=== PATIENT | female | born 2000 | race Caucasian/White ===

== ENCOUNTER 2023-07-31 12:43 | Inpatient (IN) | payer BC, MEDICAID, SELFPAY ==
[2023-07-31] VITALS (35 sets, daily range): BP systolic 124–162; BP diastolic 62–86; PULSE 73–117; TEMP 36.6–36.9
[2023-07-31 13:23] LABS: Amnisure POSITIVE (NEGATIVE)
[2023-07-31 13:24] LABS: Bilirubin Urine NEGATIVE (NEGATIVE); Blood Urine NEGATIVE (NEGATIVE); Clarity Urine CLEAR (CLEAR); Color Urine LT. YELLOW (YELLOW); Glucose Urine UA NEGATIVE (NEGATIVE); Ketones Urine NEGATIVE (NEGATIVE); Leukocyte Esterase Urine NEGATIVE (NEGATIVE); Nitrite Urine NEGATIVE (NEGATIVE); Protein Urine NEGATIVE (NEG/TRACE); Specific Gravity Urine 1.015 (1.005-1.025); Urine Microscopic Indicated NO; Urobilinogen Urine 0.2 EU/dL (0.2-1.0)
[2023-07-31] MEDS: AMPICILLIN SODIUM 2,000 MG in 0.9 % SODIUM CHLORIDE 100 ML 200 MG IV (14:01)
[2023-07-31] MEDS: 0.9 % SODIUM CHLORIDE 1,000 ML 125 ML IV ×2 (14:01→22:14)
[2023-07-31 14:09] LABS: Hematocrit 36.7 % (36.0-48.0); Hemoglobin 12.4 g/dL (12.0-16.0); Mean Corpuscular HGB Conc 33.8 g/dL (29.9-35.2); Mean Corpuscular Volume 91.8 fL (81.0-99.0); Mean Platelet Volume 12.2 fL (9.5-13.5); Platelet Count 164 10^3/uL (150-450); Red Cell Distribution Width 14.2 % (11.0-15.0)
[2023-07-31 14:18] LABS: Amphetamine Screen Urine NEGATIVE (NEGATIVE); Barbiturates Screen Urine NEGATIVE (NEGATIVE); Benzodiazepines Screen Urine NEGATIVE (NEGATIVE); Buprenorphine Screen Urine NEGATIVE (NEGATIVE); Cannabinoid Screen Urine NEGATIVE (NEGATIVE); Cocaine Screen Urine NEGATIVE (NEGATIVE); Methadone Screen Urine NEGATIVE (NEGATIVE); Methamphetamines Screen Urine NEGATIVE (NEGATIVE); Opiate Screen Urine NEGATIVE (NEGATIVE); Oxycodone Screen Urine NEGATIVE (NEGATIVE); Phencyclidine Screen Urine NEGATIVE (NEGATIVE); Tricyclic Antidepressant Urine NEGATIVE (NEGATIVE)
[2023-07-31] MEDS: OXYTOCIN/0.9 % SODIUM CHLORIDE 10 UNITS/500 ML PLAST..BAG 6 UNIT IV (14:18)
[2023-07-31] MEDS: AMPICILLIN SODIUM 1,000 MG in 0.9 % SODIUM CHLORIDE 50 ML 100 MG IV ×2 (17:44→22:14)
[2023-07-31] MEDS: ACETAMINOPHEN 500 MG TABLET 1000 MG PO (18:27)
[2023-07-31] MEDS: FENTANYL CITRATE/PF 100 MCG/2 ML VIAL EPIDURAL ×2 (23:50→23:52)
[2023-07-31] MEDS: ROPIVACAINE HCL/PF 400 MG/200 ML PREMIX 6 MG EPIDURAL (23:52)
[2023-07-31] MEDS: 0.9 % SODIUM CHLORIDE 1,000 ML 1000 ML IV (23:53)
[2023-08-01] VITALS (37 sets, daily range): BP systolic 113–137; BP diastolic 58–79; PULSE 77–123; RESP 16; TEMP 36.9–37.3
--- NOTE | 2023-08-01 03:40 | P.OBHP_ITS ---
OB - H&P: HPI History of Present Illness Chief complaint: LABOR : 1 Para: 0 Gestational age based on last menstrual period: 39.3 History of Present Dating criteria: LMP confirmed by 1st trimester US care: good care Ultrasounds: normal 1st trimester US and normal mid trimester US complications comment: social issues with FOB Medical complications OB: none Labs Blood type: O (+) positive Rubella: immune RPR/VDLR: nonreactive GBS status: positive HBsAG: negative PFSH PFS Social History (Updated 07/31/23 @ 14:41 by Philly Stephens RN) Within the past year, how often did you have a drink containing alcohol: never Score interpretation: A score less than 3 is consistent with normal alcohol consumption. Smoking status: Never smoker Non-prescribed substance use: denies use Meds Home Medications and Allergies Home Medications Medication Instructions Recorded Confirmed Type vitamin with calcium tab 07/31/23 History no.72-iron 27 mg-folic acid 1 mg tablet (WesTab Plus) Allergies Allergy/AdvReac Type Severity Reaction Status Date / Time No Known Drug Allergies Allergy Verified 07/31/23 13:04 Exam Constitutional Vital Signs, click to edit/add: Last Vital Signs Temp 97.9 F 07/31/23 19:14 Pulse 95 H 08/01/23 03:34 BP 130/67 08/01/23 03:34 Documenting provider has reviewed patient's vital signs: yes Common normals: no apparent distress and oriented x3 General appearance: cooperative and comfortable Orientation/consciousness: Yes awake HENMT Common normals: normocephalic Eye Common normals: EOMs intact bilaterally Neck & C-Spine Common normals: full ROM and no lymphadenopathy Lymph Lymphatic: no lymphadenopathy noted Chest Common normals: inspection of chest normal Respiratory Common normals: normal respiratory effort Cardio Common normals: no JVD, regular rate and regular rhythm Rate: regular rate Rhythm: regular rhythm GI Common normals: soft to palpation and non-tender Auscultation: hypoactive bowel sounds Palpation: soft Common normals: no CVA tenderness Back & Pelvis Common normals: no CVA tenderness Extremity Common normals: normal to inspection and full ROM Neuro Common normals: oriented x3 Psych Common normals: mental status grossly normal, thought process normal, coop erative, affect normal and speech normal Results Labs Labs: Short CBC 07/31/23 Range/Units 13:55 WBC 10.0 (4.0-11.0) 10^3/uL Hgb 12.4 (12.0-16.0) g/dL Hct 36.7 (36.0-48.0) % Plt Count 164 (150-450) 10^3/uL Urine 07/31/23 Range/Units 13:09 Urine Color Lt. yellow (YELLOW) Urine Clarity Clear (CLEAR) Urine pH 6.0 (5.0-9.0) Ur Specific Coleman 1.015 (1.005-1.025) Urine Protein Negative (NEG/TRACE) mg/dL Urine Glucose (UA) Negative (NEGATIVE) mg/dL OB - A/P Assessment and Plan (1) Term :
[2023-08-01] MEDS: LIDOCAINE VISCOUS 2% 15 ML SOLUTION 5 ML TOPICAL (04:20)
[2023-08-01] MEDS: LIDOCAINE HCL 1% 200 MG/20 ML MDV INJ (04:28)
--- NOTE | 2023-08-01 05:14 | PM.OBPRCVD ---
Procedure Procedure: Intrapartal events: None Induction method: none Delivery augmentation: pitocin Delivery monitor: external FHT and external uterine Route of delivery: Episiotomy Description: none Laceration description: labial (bilateral labial repair. ) Delivery repair: Vicryl Estimated blood loss (mL): 300 Anesthesia type: Epidural Complications: none Infant Gender: female presentation: vertex Placental delivery description: Spontaneous cord description: 3 Vessels heart rate - 1 minute: 100 bpm or Greater respiratory effort - 1 minute: Spontaneous/Strong Cry muscle tone - 1 minute: Active Movement reflex response - 1 minute: Minimal Response color - 1 minute: Bluish Hands or Feet total score - 1 minute: 8 heart rate - 5 minute: 100 bpm or Greater respiratory effort - 5 minute: Spontaneous/Strong Cry muscle tone - 5 minute: Active Movement reflex response - 5 minute: Prompt Response color - 5 minute: Bluish Hands or Feet total score - 5 minute: 9
[2023-08-01] MEDS: OXYTOCIN/0.9 % SODIUM CHLORIDE 20 UNITS/1,000 ML PLAST..BAG 125 UNIT IV (05:16)
[2023-08-01] MEDS: BENZOCAINE/MENTHOL 85 GRAM SPRAY BOTTLE 1 APPLIC TOPICAL (07:50)
[2023-08-01] MEDS: IBUPROFEN 400 MG TABLET 800 MG PO ×3 (07:50→23:54)
[2023-08-01] MEDS: GLYCERIN/WITCH HAZEL PADS 1 PAD TOPICAL (07:51)
[2023-08-02 08:15] VITALS: BP 124/67; PULSE 86
[2023-08-02] MEDS: GLYCERIN/WITCH HAZEL PADS 1 PAD TOPICAL (08:21)
[2023-08-02] MEDS: DOCUSATE SODIUM 100 MG CAPSULE PO ×2 (08:22→20:43)
[2023-08-02] MEDS: BENZOCAINE/MENTHOL 85 GRAM SPRAY BOTTLE 1 APPLIC TOPICAL (08:22)
[2023-08-02] MEDS: IBUPROFEN 400 MG TABLET 800 MG PO ×3 (08:22→23:39)
[2023-08-02 09:03] VITALS: BP 124/67; PULSE 86; RESP 16; TEMP 36.7
--- NOTE | 2023-08-02 09:06 | PM.OBPN ---
OB - PN: Subj Subjective Patient comments: no complaints, pain well controlled, tolerating diet and flatus present infant status: doing well feeding status: exclusively Exam Constitutional Vital Signs, click to edit/add: Last Vital Signs Temp 98.6 F 08/01/23 23:45 Pulse 86 08/02/23 08:15 Resp 16 08/01/23 23:45 BP 124/67 08/02/23 08:15 O2 Del Method Room Air 08/01/23 23:46 Documenting provider has reviewed patient's vital signs: yes Common normals: no apparent distress and oriented x3 General appearance: cooperative, comfortable, well kempt and well developed Orientation/consciousness: Yes awake, Yes oriented to person, Yes oriented to place and Yes oriented to time HENMT Common normals: normocephalic Eye Common normals: PERRL Neck & C-Spine Common normals: full ROM Lymph Lymphatic: no lymphadenopathy noted Chest Common normals: inspection of chest normal Respiratory Common normals: normal respiratory effort Effort & inspection: able to speak in complete sentences Auscultation: clear to auscultation bilaterally Cardio Common normals: regular rate and regular rhythm GI Common normals: Normal to inspection, nondistended, normoactive bowel sounds present Common normals: no CVA tenderness Back & Pelvis Common normals: no CVA tenderness and no thoracic nor lumbar tenderness Extremity Common normals: normal to inspection and full ROM Neuro Common normals: oriented x3 Sensorium/orientation: awake, alert, oriented to person, oriented to place and oriented to time Psych Common normals: mental status grossly normal, thought process normal, cooperative, affect normal and speech normal OB - PN: A/P Assessment and Plan (1) Term : Plan - Vaginal Delivery day: 1 Plan: routine care Time Spent with Patient Time: Total time spent is greater than 50% in coordination of care (as documented) at patient's floor/unit and/or counseling patient: Total time spent with greater than 50% in coordination of care (as documented) at patient's floor/unit and/or counseling patient: less than 15 minutes
[2023-08-02 16:32] VITALS: BP 128/66; PULSE 87
[2023-08-02 16:54] VITALS: BP 128/66; PULSE 87; RESP 16; TEMP 36.7
--- NOTE | 2023-08-02 19:05 | W.PC.ACHO ---
Registration Status: ADM IN Primary Language: Citizen Of [place] Preferred Language: [place] Active Medications Generic Name Dose Route Start Last Admin Trade Name Freq PRN Reason Stop Dose Admin Acetaminophen 650 mg 08/01/23 05:17 Acetaminophen 325 Mg Tablet PO Q6H PRN Mild Pain Al Hydroxide/Mg Hydroxide 2,400 mg 08/01/23 05:27 Magnesium Hydroxide 2,400 Mg/10 Ml Oral.Susp PO Q6H PRN Dyspepsia Benzocaine/Menthol 1 applic 08/01/23 05:17 08/02/23 08:22 Benzocaine/Menthol 85 Gram [place] Bottle TOPICAL 1 applic Q2H PRN Administration Pain Docusate Sodium 100 mg 08/02/23 09:00 08/02/23 08:22 Docusate Sodium 100 Mg Capsule PO 100 mg BID ANTONIO Administration Sodium Chloride 1,000 mls @ 125 mls/hr 07/31/23 13:45 07/31/23 22:14 Sodium Chloride 0.9% 1,000 Ml IV 125 mls/hr .Q8H ANTONIO Administration Ibuprofen 800 mg 08/01/23 05:45 08/02/23 16:01 Ibuprofen 400 Mg Tablet PO 800 mg Q8H ANTONIO Administration Ondansetron HCl 4 mg 07/31/23 13:45 Ondansetron Pf 4 Mg/2 Ml Vial IV Q6H PRN Nausea And Vomiting Ondansetron HCl 4 mg 07/31/23 13:45 Ondansetron 4 Mg Rapdis Tablet SL Q6H PRN Nausea And Vomiting Simethicone 80 mg 08/01/23 05:27 Simethicone 80 Mg Tab.Chew PO QID PRN Abdominal Distention Temazepam 15 mg 08/01/23 05:27 Temazepam 15 Mg Capsule PO QHS PRN Sleep Witch Jacy/Glycerin 1 pad 08/01/23 05:17 08/02/23 08:21 Glycerin/Witch Jacy Pads TOPICAL 1 pad Q2H PRN Administration Pain Respiratory Oxygen Delivery Method Room Air Oxygen Delivery Method Room Air Oxygen Delivery Method Room Air Oxygen Delivery Method Room Air
[2023-08-02 23:36] VITALS: BP 125/59; PULSE 87
[2023-08-02 23:40] VITALS: BP 125/59; PULSE 87; RESP 16; TEMP 37.4
--- NOTE | 2023-08-03 07:29 | PM.OBPN ---
OB - PN: Subj Subjective Patient comments: no complaints and pain well controlled Odonnell status: doing well Exam Constitutional Vital Signs, click to edit/add: Last Vital Signs Temp 99.3 F 08/02/23 23:40 Pulse 87 08/02/23 23:40 Resp 16 08/02/23 23:40 BP 125/59 08/02/23 23:40 O2 Del Method Room Air 08/02/23 23:40 Documenting provider has reviewed patient's vital signs: yes Common normals: no apparent distress Respiratory Common normals: normal respiratory effort and clear to auscultation bilaterally Cardio Common normals: regular rate and regular rhythm GI Common normals: Normal to inspection, nondistended, normoactive bowel sounds present Extremity Common normals: no clubbing, cyanosis or edema and no calf tenderness OB - PN: A/P Assessment and Plan (1) Term : Plan - Vaginal Delivery day: 2 Plan: routine care, discharge home and follow up 6 weeks Time Spent with Patient Time: Total time spent is greater than 50% in coordination of care (as documented) at patient's floor/unit and/or counseling patient: Total time spent with greater than 50% in coordination of care (as documented) at patient's floor/unit and/or counseling patient: less than 15 minutes
[2023-08-03 08:40] VITALS: RESP 16; TEMP 36.8
[2023-08-03] MEDS: DOCUSATE SODIUM 100 MG CAPSULE PO (08:53)
[2023-08-03] MEDS: IBUPROFEN 400 MG TABLET 800 MG PO (08:53)
[2023-08-03 08:57] VITALS: BP 112/59; PULSE 87
--- NOTE | 2023-08-03 12:42 | PC.NURSE ---
Given information with discussion on drying up milk as chooses to formula feed. No further discussion, verbalized understanding.
== END 2023-08-03 13:50 | disposition home or self-care (01) | DRG 807 ==
PROVIDERS: Admitting Provider Midwife; PCP Family Medicine; Visit Provider Midwife
DX: O99.824 Streptococcus B carrier state complicating childbirth (principal); Z37.0 Single live birth; O70.0 First degree perineal laceration during delivery; O99.354 Diseases of the nervous system complicating childbirth; G47.33 Obstructive sleep apnea (adult) (pediatric); Z3A.39 39 weeks gestation of pregnancy
CPT/HCPCS: 36415; 51702; 59050; 59410; 80307; 81003; 84112; 85027; 86850; 86900; 86901; 96365; 96375; 96376